=== PATIENT | male | born 1960 | race Caucasian/White ===

== ENCOUNTER 2017-07-19 04:02 | Emergency (ER) | payer MEDICAID ==
[~2017-07-19] VITALS: Ht 167.6 cm; Wt 86.9 kg
[2017-07-19] MEDS ORDERED: TAMSULOSIN 0.4 MG CAP.ER.24H ONE (04:58)
[2017-07-19] MEDS ORDERED: KETOROLAC 30 MG/1 ML ONE (04:58)
[2017-07-19] MEDS ORDERED: MORPHINE SULFATE 4 MG/ML, 1ML ONE (04:58)
[2017-07-19] MEDS ORDERED: ONDANSETRON 2MG/ML, 2ML ONE (04:58)
[2017-07-19] MEDS ORDERED: KETOROLAC 30 MG/1 ML IVPush ONE (05:00)
[2017-07-19] MEDS ORDERED: ONDANSETRON 2MG/ML, 2ML IVPush ONE (05:00)
[2017-07-19] MEDS ORDERED: SODIUM CHLORIDE 0.9% 1,000ML IV ONE (05:00)
[2017-07-19] MEDS ORDERED: TAMSULOSIN 0.4 MG CAP.ER.24H PO ONE (05:00)
[2017-07-19] MEDS ORDERED: MORPHINE SULFATE 4 MG/ML, 1ML IVPush PRN (05:00)
[2017-07-19] MEDS ORDERED: SODIUM CHLORIDE FLUSH 10ML SYR IVF ONE (05:00)
[2017-07-19 05:22] LABS: HEMATOCRIT 43.2 % (39.2-51.8); HEMOGLOBIN 14.3 g/dL (13.7-18.0); WHITE BLOOD COUNT 8.9 x10^3/uL (3.4-10)
[2017-07-19 05:32] LABS: BLOOD UREA NITROGEN 15 mg/dL (7-18)
[2017-07-19 06:40] VITALS: BP 156/81
[2017-07-19 06:56] LABS: PATH.CAST-FLAG NOT PRESENT; SPERM-FLAG NOT PRESENT; SRC-FLAG NOT PRESENT; XTAL-FLAG NOT PRESENT; YLC-FLAG NOT PRESENT
== END 2017-07-19 09:36 | disposition home or self-care (01) ==
LOC: ED 06:14
DX: N20.2 Calculus of kidney with calculus of ureter (principal); R31.9 Hematuria, unspecified
CPT/HCPCS: 36415; 76770; 80048; 81001; 82040; 85025; 87086; 96361; 96374; 96375; 99285; J1885; J2405; J7030

== ENCOUNTER 2017-07-23 13:38 | Emergency (ER) | payer MEDICAID ==
[~2017-07-23] VITALS: Ht 167.6 cm; Wt 86.1 kg
[2017-07-23 13:39] VITALS: BP 161/95
== END 2017-07-23 14:21 | disposition left against medical advice (07) ==
LOC: ED 14:15
DX: M54.9 Dorsalgia, unspecified (principal); Z53.21 Procedure and treatment not carried out due to patient leaving prior to being seen by health care provider